=== PATIENT | male | born 1940 | race Caucasian/White ===

== ENCOUNTER 2017-04-14 12:36 | Inpatient (IN) | payer OTHER ==
[2017-04-12 20:24] LABS: HEMATOCRIT 45.7 % (40.0-51.0); HEMOGLOBIN 15.3 g/dL (13.6-17.8)
[2017-04-12 20:57] LABS: ASCORBIC ACID (UR NOT ORDER) NEG (NEG); BILIRUBIN, URINE NEGATIVE (NEG); KETONE, URINE TRACE MG/DL (NEG); LEUKOCYTE ESTERASE(NOT OR LARGE (NEG)
[2017-04-12 21:00] LABS: WBC (NOT ORDERED) (RFLEX) > 182 (0-5)
[~2017-04-14] VITALS: Ht 180.3 cm; Wt 88.9 kg
--- NOTE | ~2017-04-14 | OP ---
Record Of Operation [facility] [address] [place]. [address] NAME: NITISH EVERETT : 36 STATUS : ADM IN PAT#: [id number] AGE: 77 ADM/REG DATE : 04/14/17 MR#: [id number] REPORT SERV DATE: 04/15/17 DICTATED BY: GISELLE DORSEY DATE: 04/15/17 REPORT STATUS : Draft TRANSCRIBED BY: MODL DATE: 04/15/17 DATE OF PROCEDURE: 04/15/2017 TITLE OF OPERATION: Robot-assisted laparoscopic simple prostatectomy. PREOPERATIVE DIAGNOSES: 1. Benign prostatic hyperplasia with obstruction. 2. Urinary retention. POSTOPERATIVE DIAGNOSIS: 1. Benign prostatic hyperplasia with obstruction. 2. Urinary retention. INDICATIONS: Mr. Everett is a 77-year-old male, with BPH and urinary retention. He has failed multiple voiding trials and failed conservative medical management. Ultrasound has estimated this prostate size to be over 150 g. He is here for robotic simple prostatectomy. ANESTHESIA: General. COMPLICATIONS: None. IMPLANTS: A 24-Belizean 3-way Hunter catheter. SPECIMEN: Prostatic adenoma. NARRATIVE: Patient brought to the operating room, and identified by his wristband. General anesthesia was induced. Ancef was given for preoperative antibiotics. He was placed in dorsal lithotomy position, prepped and draped in sterile fashion. A 16-Belizean Hunter catheter was placed into his bladder. The balloon was inflated with 10 mL of sterile water. A Veress needle was used to insufflate his abdomen to a pressure of 15 mmHg. A 5 mm port was placed in a supraumbilical position. The abdomen was inspected. There was some adhesions in the right upper quadrant due to his prior open gallbladder surgery. These do not interfere with placement of the ports. Standard excised port placement was performed with two 8 mm ports on the left side of the body and one on the right side of the body. A 12 mm port was placed in the right lower quadrant for an fiscal assistant port. A 5 mm air seal port was placed in the right upper quadrant away from the adhesions for a second fiscal assistant port. The patient was placed in Trendelenburg and the robot was docked. We began the operation by dropping the bladder off the anterior abdominal wall using electrocautery. The pubic bone and prostate were exposed. A horizontal cystotomy was made in the bladder. The prostatic adenoma was identified. A 0 Vicryl suture was placed through the adenoma and clipped as a marking suture. The bladder mucosa was scored distal to the trigone. This dissection was carried through the detrusor fibers onto the adenoma. The adenoma was precisely identified. It was traced down to its junction with the transitional zone. At this time, the adenoma was taken off the transitional zone of the prostate from the base to the apex. The adenoma was then dissected free off the capsule laterally and superiorly. The urethra was then done identified, precisely divided, and the adenoma was then freed from Record Of Operation [facility] [address] [place]. [address] NAME: NITISH EVERETT : 36 STATUS : ADM IN PAT#: [id number] AGE: 77 ADM/REG DATE : 04/14/17 MR#: [id number] REPORT SERV DATE: 04/15/17 DICTATED BY: GISELLE DORSEY DATE: 04/15/17 REPORT STATUS : Draft TRANSCRIBED BY: COLETTE DATE: 04/15/17 all attachments and placed into the EndoCatch bag. The arterial bleeders were controlled with bipolar cautery. The bladder mucosa was advanced into the prostatic fossa with a 3-0 V Loc suture. Care was taken over sew pedicle bleeders at this 5 and 7 o'clock positions. A second 3-0 V-Loc suture was used to oversew the dorsal venous penetrators in a horseshoe configuration. A 24-Belizean 3-way Hunter catheter was placed into the bladder with robotic assistance. The cystotomy was then closed in two layers, the first layer was a mucosal layer using a 3-0 V-Loc suture and 2nd layer was a seromuscular layer using a V-Loc suture. The bladder was irrigated. There was no leak. The balloon was inflated with 40 mL of sterile water. The robot was undocked. The fiscal assistant port was closed with a 0 Vicryl suture using Nguyễn-Lenora device. A #10 round YENI drain was placed through the left lateral robotic port. All the ports were removed. The drain was sutured in place with a 2- 0 nylon suture. The supraumbilical incision was enlarged at the skin and fascia levels. The prostate adenoma was removed in its bag and sent to pathology for analysis. Wounds were irrigated clear. The fascia was closed with 0 Monocryl sutures in a [id number] fashion. The skin was closed with 4-0 Monocryl suture in subcuticular fashion. Dermabond dressing was placed. The catheter was placed on traction. CBI was initiated. The urine was clear. The patient was awoken from anesthesia and transferred to the recovery room in stable condition. There were no complications. JKM/MODL Giselle Dorsey MD / [id number] CC: Giselle Dorsey MD
[~2017-04-14 12:36] MED LIST: ASA5GR PO; ASAB PO; IMDUR30 PO; NTG150 SL; PRILO PO; PRILOSEC OTC20 MG PO
[2017-04-14 18:59] LABS: BASOPHILS 0.1 %; BASOPHILS ABSOLUTE 0.01 10/3/uL (0.0-0.16); EOSINOPHILS 0.5 %; EOSINOPHILS ABSOLUTE 0.04 10/3/uL (0.0-0.53); HEMOGLOBIN 13.7 g/dL (13.6-17.8); IMMATURE GRANULOCYTES 0.2 %; IMMATURE GRANULOCYTES ABSOLUTE 0.02 10/3/uL (0.0-0.11); LYMPHOCYTES 13.3 %; MEAN CORPUS HGB CONC 34.3 g/dL (32.0-36.0); MEAN CORPUSCULAR VOLUME 90.5 fL (80-100); MEAN PLATELET VOLUME 8.8 fL (9.2-13.0); MONOCYTES 3.6 %; NEUTROPHILS 82.3 %; PLATELET COUNT 172 10/3/uL (150-400); RED CELL COUNT 4.42 10/6/uL (4.7-6.1); WHITE BLOOD CELLS 8.3 10/3/uL (4.5-10.5)
[2017-04-14 19:04] LABS: MANUAL DIFF NO %
[2017-04-14 19:11] LABS: CALCIUM, SERUM 8.3 MG/DL (8.5-10.4); CHLORIDE, SERUM 105 MMOL/L (96-112); CO2 (CARBON DIOXIDE) 28 MMOL/L (24-34); CREATININE 1.16 MG/DL (0.70-1.30); GFR AFRICAN AMERICAN 69 ML/MIN (>=60); GFR NON AFRICAN AMERICAN 60 ML/MIN (>=60); POTASSIUM, SERUM 4.2 MMOL/L (3.5-5.3); SODIUM, SERUM 139 MMOL/L (135-148)
[2017-04-14 19:12] LABS: BUN (BLOOD UREA NITROGEN) 17 MG/DL (6-23); GLUCOSE, SERUM 105 MG/DL (60-99)
[2017-04-16] MEDS ORDERED: DSS PO (12:25)
[2017-04-16] MEDS ORDERED: CIP5 PO (12:26)
[2017-04-16] MEDS ORDERED: PCET PO (12:26)
== END 2017-04-16 16:40 | disposition home or self-care (01) | DRG 708 ==
LOC: ENRESERV → ENRESERVTM → ENRESERVDT → SDC/OF 12:36 → ENPENDDIS 12:36 → PACU 18:28 → 4SO 20:42
PROVIDERS: Urology
PROC: 8E0W4CZ Robotic Assisted Procedure of Trunk Region, Percutaneous Endoscopic Approach (ICD-10-PCS; 2017-04-14)
PROC: 0VT04ZZ Resection of Prostate, Percutaneous Endoscopic Approach (ICD-10-PCS; principal; 2017-04-14 14:30)
DX: N40.1 Benign prostatic hyperplasia with lower urinary tract symptoms (principal); K21.9 Gastro-esophageal reflux disease without esophagitis
CPT/HCPCS: 36415; 80048; 81001; 82570; 85014; 85018; 85025; 86850; 86900; 86901; 87077; 87086; 87186; 88307; 93005; A9270-GY; J0690; J1170; J2250; J2370; J2405; J2710; J2795; J3010